=== PATIENT | female | born 1945 | race Caucasian/White ===

== ENCOUNTER 2023-08-30 07:09 | Day surgery (SDC) | payer OTHER ==
[~2023-08-30] VITALS: Ht 152.4 cm; Wt 60.4 kg
[~2023-08-30 07:09] MED LIST: ALBU18HF12 IH; AMLO5TAB66 PO; ASCO500T20 PO; ATOR20TA65 PO; CALC0.253 PO; CHOL500045 PO; ESCI-8 PO; FAMO20 PO; FLUT12AE3 IH; FLUT16H NASAL; LATA2.5D14 OU; LEVO88TA7 PO; LOSA-382 PO; METF-445 PO; MONT-40 PO; SODIUM CHLORIDE 0.9% 1,000 ML ONE
[2023-08-30] MEDS ORDERED: LIDOCAINE 4% 50 ML SOLUTION TP ONE (07:10)
[2023-08-30] MEDS ORDERED: BENZOCAINE 20% 50 MCG/SPRAY 57 GM TP ONE (07:10)
[2023-08-30] MEDS ORDERED: LIDOCAINE 2% 11 ML JELLY TP ONE (07:10)
[2023-08-30] MEDS ORDERED: MIDAZOLAM HCL 2 MG/2 ML VIAL ONE (07:48)
[2023-08-30] MEDS ORDERED: FentaNYL CITRATE PF 100 MCG/2 ML VIAL ONE (07:48)
[2023-08-30] MEDS: SODIUM CHLORIDE 0.9% 1,000 ML IV ONE (08:38)
[2023-08-30 08:50] LABS: GLUCOMETER DEV NAME(LOC) SDS.; GLUCOSE,POINT OF CARE 122 MG/DL (70-110)
[2023-08-30] MEDS ORDERED: MethylPREDNISolone SOD SUCC 125 MG/2 ML VIAL ONE (09:31)
[2023-08-30 09:39] VITALS: PULSE 73; RESP 21; O2SAT 100
[2023-08-30] MEDS: MethylPREDNISolone SOD SUCC 125 MG/2 ML VIAL IVP ONE (10:09)
== END 2023-08-30 11:45 | disposition home or self-care (01) ==
LOC: SURGERY 07:09
PROVIDERS: ATTEND Internal Medicine Critical Care Medicine
DX: R05.3 Chronic cough (principal); J38.4 Edema of larynx; B37.0 Candidal stomatitis; R06.2 Wheezing; R04.2 Hemoptysis; R91.8 Other nonspecific abnormal finding of lung field; J84.10 Pulmonary fibrosis, unspecified; J98.8 Other specified respiratory disorders; J98.09 Other diseases of bronchus, not elsewhere classified; I10 Essential (primary) hypertension; E11.9 Type 2 diabetes mellitus without complications; E03.9 Hypothyroidism, unspecified; Z85.21 Personal history of malignant neoplasm of larynx; Z79.899 Other long term (current) drug therapy; Z98.891 History of uterine scar from previous surgery; Z90.710 Acquired absence of both cervix and uterus
CPT/HCPCS: 31623; 82962; 87206; 87101; 87220; 87070; 88108; 31624; 71045; 87015; J3010; J2250; J2919; J7030; Z7610